=== PATIENT | male | born 1970 | race Two or more races ===

== ENCOUNTER 2020-06-28 00:44 | Emergency (ER) | payer MEDICAID ==
[~2020-06-28] VITALS: Ht 177.8 cm; Wt 81.6 kg
[2020-06-28 07:35] VITALS: BP 150/99
[2020-06-28] MEDS ORDERED: ACETAMINOPHEN 500 MG TAB PO ONE (07:45)
== END 2020-06-28 08:07 | disposition home or self-care (01) ==
LOC: EDBD 00:44 → ER 00:44
DX: S16.1XXA Strain of muscle, fascia and tendon at neck level, initial encounter (principal); S80.811A Abrasion, right lower leg, initial encounter; K57.90 Diverticulosis of intestine, part unspecified, without perforation or abscess without bleeding; V49.9XXA Car occupant (driver) (passenger) injured in unspecified traffic accident, initial encounter; Y93.89 Activity, other specified; Y92.89 Other specified places as the place of occurrence of the external cause; Y99.8 Other external cause status
CPT/HCPCS: 70450; 71250; 72125; 73590; 74176